=== PATIENT | female | born 1950 | race African-American/Black ===

== ENCOUNTER 2018-01-20 09:28 | Day surgery (SDC) | payer OTHER ==
[~2018-01-20] VITALS: Ht 162.6 cm; Wt 90.2 kg
[~2018-01-20 09:28] MED LIST: ALLOPURINOL100 MG PO; ASCORBIC ACID500 M3 PO; CALCIUM 500 +1 EACH PO; COQ-10100 MG PO; FISH OIL 1,0001 EAC7 PO; GARLIC500 M1 PO; HYDROCHLOROTH12.5 M3 PO; LOSARTAN POTAS100 MG PO; MULTIVITAMIN1 EAC2 PO; NORVASC5 MG PO; PROTONIX40 MG PO; TEMOVATE 0.05%30 GM TP; ZOFRAN4 MG PO; [UNRECOGNIZED DRUG - OTHER]
[2018-01-20 10:35] VITALS: BP 163/76
[2018-01-20 15:41] VITALS: BP 126/75
[2018-01-20 16:23] VITALS: BP 128/61
== END 2018-01-20 16:28 | disposition home or self-care (01) ==
LOC: SDC 09:28
PROC: 08B43ZZ Excision of Right Vitreous, Percutaneous Approach (ICD-10-PCS; principal; 2018-01-20)
PROC: 08QE3ZZ Repair Right Retina, Percutaneous Approach (ICD-10-PCS; principal; 2018-01-20)
DX: H33.021 Retinal detachment with multiple breaks, right eye (principal); H43.391 Other vitreous opacities, right eye; I10 Essential (primary) hypertension; D64.9 Anemia, unspecified
CPT/HCPCS: J0690; J0713; J1100; J1885; J2405